=== PATIENT | male | born 1950 | race Two or more races ===

== ENCOUNTER 2019-12-31 17:52 | Emergency (ER) | payer OTHER, MEDICARE ==
[~2019-12-31] VITALS: Ht 175.3 cm; Wt 75.0 kg
[2019-12-31] MEDS ORDERED: METF-816 PO (17:55)
[2019-12-31] MEDS ORDERED: SODIUM CHLORIDE 0.9% 1,000 ML IV ONE (18:21)
[2019-12-31 18:49] LABS: BASOPHILS % 0.4 % (0.0-2.0); EOSINOPHILS % 1.9 % (0.0-5.0); HEMATOCRIT. 39.1 % (42.0-52.0); HEMOGLOBIN. 13.2 g/dL (14.0-18.0); LYMPHOCYTES % 19.1 % (20.0-50.0); MEAN CORPUSCULAR HEMOGLOBIN 30.9 pg (28.0-32.0); MEAN CORPUSCULAR VOLUME 91.5 fL (80.0-94.0); MEAN PLATELET VOLUME 8.4 fl (7.4-10.4); MONOCYTES % 8.1 % (2.0-8.0); NEUTROPHILS % 70.5 % (40.0-76.0); PLATELET 179 x1000/uL (130-400); RED BLOOD CELL COUNT 4.28 mill/uL (4.7-6.1); RED CELL DISTRIBUTION WIDTH 13.4 % (11.6-14.6)
[2019-12-31 18:55] LABS: CHLORIDE 107 mEq/L (98-107)
[2019-12-31 18:58] LABS: PARTIAL THROMBOPLASTIN TIME 21.4 sec (23.4-31.0); PROTHROMBIN TIME 10.8 sec (9.6-11.0)
[2019-12-31] MEDS ORDERED: ASPIRIN 81MG TABLET PO ONE (19:45)
[2019-12-31 20:04] VITALS: BP 145/76
== END 2019-12-31 20:13 | disposition left against medical advice (07) ==
LOC: ER 17:52
DX: R55 Syncope and collapse (principal); D64.9 Anemia, unspecified; I10 Essential (primary) hypertension; Z85.028 Personal history of other malignant neoplasm of stomach; Z90.3 Acquired absence of stomach [part of]
CPT/HCPCS: 36415; 71045; 80053; 83880; 84484; 85025; 85610; 85730; 93005; 99285; J7030